=== PATIENT | male | born 1945 | race Caucasian/White ===

== ENCOUNTER 2020-11-29 13:24 | Inpatient (IN) | payer MEDICARE ==
--- NOTE | 2020-11-29 14:12 | ED ---
SOB HPI - General Chief Complaint: Shortness of Breath Stated Complaint: Weakness Time Seen by Provider: 11/29/20 13:36 Source: patient, EMS Mode of arrival: EMS Limitations: physical limitation - History of Present Illness Initial Comments: This is a 75-year-old male with a history of CAD who presents emergency department for 3 weeks worth of exertional dyspnea. The patient states that prior to having exertional dyspnea he states that he was sick and had some upper respiratory symptoms including rhinorrhea and drainage down the back of his throat. He states he thought he had a fever at that time as well. This resolved the next day however the patient states that since that time he's been having exertional dyspnea that gradually worsened. He denies any fevers or chills. No chest pain. No lower [place] swelling that is outside his normal. He states that he has not had any cough. He states that today his dyspnea was worse so he decided come on and don't come emergency department for further evaluation. Denies any other acute complaints. Patient was reportedly hypoxic when EMS arrived in the 80s. This was resolved with a few liters of oxygen. - Related Data Home Medications Medication Instructions Recorded Confirmed Clopidogrel [Plavix] 75 mg PO MOWEFR 11/29/20 11/29/20 Furosemide [Lasix] 20 mg PO DAILY 11/29/20 11/29/20 Isosorbide Mononitrate ER [Imdur] 30 mg PO DAILY 11/29/20 11/29/20 Lisinopril [Zestril] 10 mg PO DAILY 11/29/20 11/29/20 Metoprolol Tartrate 12.5 mg PO DAILY 11/29/20 11/29/20 Simvastatin [Zocor] 20 mg PO HS 11/29/20 11/29/20 Allergies Allergy/AdvReac Type Severity Reaction Status Date / Time No Known Allergies Allergy Verified 11/29/20 14:19 Review of Systems ROS Statement: Those systems with pertinent positive or pertinent negative responses have been documented in the HPI. ROS Other: All systems not noted in ROS Statement are negative. Past Medical History Past Medical History: Coronary Artery Disease (CAD), Hypertension History of Any Multi-Drug Resistant Organisms: None Reported Past Surgical History: Heart Catheterization With Stent Past Psychological History: No Psychological Hx Reported Smoking Status: Former smoker Past Alcohol Use History: None Reported Past Drug Use History: None Reported General Exam - General Exam Comments Initial Comments: Constitutional: Awake alert Appears comfortable Head: Normocephalic atraumatic Eyes: no conjunctival injection No scleral icterus EOMI Neck: No JVD Supple Heart: Regular rate rhythm normal S1-S2 no murmurs Lungs: Clear to auscultation bilaterally No wheezing questionable bibasilar rales Abdomen: Soft nondistended nontender Extremities: Mild pitting edema bilaterally DP pulses intact Radial pulses intact Neuro: A&Ox3 No focal neurologic deficits Psych: Appropriate mood and affect Limitations: physical limitation Course Vital Signs 11/29/20 11/29/20 13:40 14:38 Temperature 98.2 F Pulse Rate 76 84 Respiratory 22 18 Rate Blood Pressure 120/71 100/75 O2 Sat by Pulse 97 94 L Oximetry - Reevaluation(s) Reevaluation #1: EKG showing it or fibrillation with a rate of 87. No abnormal ST 7 changes or T-wave inversions. QTC is 440. Other intervals normal. There is one PVC. 11/29/20 15:34 Medical Decision Making - Medical Decision Making Is a 75-year-old male who presents emergency department for progressively worsening shortness of breath for the last 3 weeks. The patient was hypoxic when EMS arrived. He was stabilized with a couple liters of nasal cannula oxygen. Patient was found to be in new atrophic relation with controlled rate. He started on heparin. Patient was found to be: Positive with bilateral infiltrates. Because the patient was hypoxic he will be admitted to the hospital for monitoring. Will likely require life time" ablation for his A. fib. Dr. Tapia who accepted the admission. - Lab Data Result diagrams: 11/29/20 13:55 11/29/20 13:55 Lab Results 11/29/20 11/29/20 11/29/20 Range/Units 13:55 13:55 13:55 WBC 3.9 (3.8-10.6) k/uL RBC 5.13 (4.30-5.90) m/uL Hgb 15.0 (13.0-17.5) gm/dL Hct 43.0 (39.0-53.0) % MCV 83.8 (80.0-100.0) fL MCH 29.2 (25.0-35.0) pg MCHC 34.9 (31.0-37.0) g/dL RDW 14.0 (11.5-15.5) % Plt Count 220 (150-450) k/uL MPV 7.4 Neutrophils % 71 % Lymphocytes % 17 % Monocytes % 7 % Eosinophils % 0 % Basophils % 1 % Neutrophils # 2.8 (1.3-7.7) k/uL Lymphocytes # 0.7 L (1.0-4.8) k/uL Monocytes # 0.3 (0-1.0) k/uL Eosinophils # 0.0 (0-0.7) k/uL Basophils # 0.0 (0-0.2) k/uL PT 10.9 (9.0-12.0) sec INR 1.0 (<1.2) APTT 21.5 L (22.0-30.0) sec D-Dimer 1.12 H (<0.60) mg/L FEU Sodium 138 (137-145) mmol/L Potassium 4.0 (3.5-5.1) mmol/L Chloride 106 (98-107) mmol/L Carbon Dioxide 26 (22-30) mmol/L Anion Gap 6 mmol/L BUN 22 H (9-20) mg/dL Creatinine 0.95 (0.66-1.25) mg/dL Est GFR (CKD-EPI)AfAm >90 (>60 ml/min/1.73 sqM) Est GFR (CKD-EPI)NonAf 78 (>60 ml/min/1.73 sqM) Glucose 115 H (74-99) mg/dL Calcium 8.0 L (8.4-10.2) mg/dL Magnesium 1.7 (1.6-2.3) mg/dL Total Bilirubin 0.9 (0.2-1.3) mg/dL AST 45 (17-59) U/L ALT 49 (4-49) U/L Alkaline Phosphatase 51 (38-126) U/L Lactate Dehydrogenase (313-618) U/L Troponin I (0.000-0.034) ng/mL C-Reactive Protein (<10.0) mg/L NT-Pro-B Natriuret Pep pg/mL Total Protein 6.1 L (6.3-8.2) g/dL Albumin 3.1 L (3.5-5.0) g/dL Coronavirus (PCR) (Not Detectd) 11/29/20 11/29/20 11/29/20 Range/Units 13:55 13:55 13:55 WBC (3.8-10.6) k/uL RBC (4.30-5.90) m/uL Hgb (13.0-17.5) gm/dL Hct (39.0-53.0) % MCV (80.0-100.0) fL MCH (25.0-35.0) pg MCHC (31.0-37.0) g/dL RDW (11.5-15.5) % Plt Count (150-450) k/uL MPV Neutrophils % % Lymphocytes % % Monocytes % % Eosinophils % % Basophils % % Neutrophils # (1.3-7.7) k/uL Lymphocytes # (1.0-4.8) k/uL Monocytes # (0-1.0) k/uL Eosinophils # (0-0.7) k/uL Basophils # (0-0.2) k/uL PT (9.0-12.0) sec INR (<1.2) APTT (22.0-30.0) sec D-Dimer (<0.60) mg/L FEU Sodium (137-145) mmol/L Potassium (3.5-5.1) mmol/L Chloride (98-107) mmol/L Carbon Dioxide (22-30) mmol/L Anion Gap mmol/L BUN (9-20) mg/dL Creatinine (0.66-1.25) mg/dL Est GFR (CKD-EPI)AfAm (>60 ml/min/1.73 sqM) Est GFR (CKD-EPI)NonAf (>60 ml/min/1.73 sqM) Glucose (74-99) mg/dL Calcium (8.4-10.2) mg/dL Magnesium (1.6-2.3) mg/dL Total Bilirubin (0.2-1.3) mg/dL AST (17-59) U/L ALT (4-49) U/L Alkaline Phosphatase (38-126) U/L Lactate Dehydrogenase (313-618) U/L Troponin I <0.012 (0.000-0.034) ng/mL C-Reactive Protein (<10.0) mg/L NT-Pro-B Natriuret Pep 61 pg/mL Total Protein (6.3-8.2) g/dL Albumin (3.5-5.0) g/dL Coronavirus (PCR) Detected A (Not Detectd) 11/29/20 Range/Units 15:23 WBC (3.8-10.6) k/uL RBC (4.30-5.90) m/uL Hgb (13.0-17.5) gm/dL Hct (39.0-53.0) % MCV (80.0-100.0) fL MCH (25.0-35.0) pg MCHC (31.0-37.0) g/dL RDW (11.5-15.5) % Plt Count (150-450) k/uL MPV Neutrophils % % Lymphocytes % % Monocytes % % Eosinophils % % Basophils % % Neutrophils # (1.3-7.7) k/uL Lymphocytes # (1.0-4.8) k/uL Monocytes # (0-1.0) k/uL Eosinophils # (0-0.7) k/uL Basophils # (0-0.2) k/uL PT (9.0-12.0) sec INR (<1.2) APTT (22.0-30.0) sec D-Dimer (<0.60) mg/L FEU Sodium (137-145) mmol/L Potassium (3.5-5.1) mmol/L Chloride (98-107) mmol/L Carbon Dioxide (22-30) mmol/L Anion Gap mmol/L BUN (9-20) mg/dL Creatinine (0.66-1.25) mg/dL Est GFR (CKD-EPI)AfAm (>60 ml/min/1.73 sqM) Est GFR (CKD-EPI)NonAf (>60 ml/min/1.73 sqM) Glucose (74-99) mg/dL Calcium (8.4-10.2) mg/dL Magnesium 1.8 (1.6-2.3) mg/dL Total Bilirubin (0.2-1.3) mg/dL AST (17-59) U/L ALT (4-49) U/L Alkaline Phosphatase (38-126) U/L Lactate Dehydrogenase 866 H (313-618) U/L Troponin I (0.000-0.034) ng/mL C-Reactive Protein 30.0 H (<10.0) mg/L NT-Pro-B Natriuret Pep pg/mL Total Protein (6.3-8.2) g/dL Albumin (3.5-5.0) g/dL Coronavirus (PCR) (Not Detectd) Disposition Clinical Impression: Pneumonia due to COVID-19 virus Disposition: ADMITTED IP TO THIS HOSP Condition: Stable Referrals: Nonstaff,Physician [Primary Care Provider] - 1-2 days
[2020-11-29 14:14] LABS: Basophils % (A) 1 %; Eosinophils % (A) 0 %; Lymphocytes # (A) 0.7 k/uL (1.0-4.8); Lymphocytes % (A) 17 %; MCH 29.2 pg (25.0-35.0); MCHC 34.9 g/dL (31.0-37.0); MCV 83.8 fL (80.0-100.0); Mean Platelet Volume 7.4; Monocytes # (A) 0.3 k/uL (0-1.0); Monocytes % (A) 7 %; Neutrophils # (A) 2.8 k/uL (1.3-7.7); Neutrophils % (A) 71 %; Platelet Count 220 k/uL (150-450); RBC 5.13 m/uL (4.30-5.90); WBC 3.9 k/uL (3.8-10.6)
--- NOTE | 2020-11-29 14:14 | XR ---
EXAMINATION TYPE: XR chest 1V portable DATE OF EXAM: 11/29/2020 HISTORY: Shortness of breath. COMPARISON: None. TECHNIQUE: Single view of the chest is submitted. FINDINGS: Demonstrated are scattered senescent parenchymal change. Scattered interstitial prominence may reflect interstitial pneumonia. Correlate clinically. The heart is stable. Hilar and mediastinal structures are within normal limits. Degenerative changes are seen of the dorsal spine. IMPRESSION: 1. Scattered interstitial prominence may reflect interstitial pneumonia. Correlate clinically.
[2020-11-29 14:36] LABS: Prothrombin Time 10.9 sec (9.0-12.0)
[2020-11-29 14:53] LABS: D-Dimer 1.12 mg/L FEU (<0.60); Partial Thromboplastin Time 21.5 sec (22.0-30.0)
[2020-11-29 14:54] LABS: ALT 49 U/L (4-49); AST 45 U/L (17-59); African American GFR (CKD) >90 (>60 ml/min/1.73 sqM); Albumin 3.1 g/dL (3.5-5.0); Alkaline Phosphatase 51 U/L (38-126); Anion Gap 6 mmol/L; Blood Urea Nitrogen 22 mg/dL (9-20); Carbon Dioxide 26 mmol/L (22-30); Chloride 106 mmol/L (98-107); Glucose 115 mg/dL (74-99); Magnesium 1.7 mg/dL (1.6-2.3); Non-African American GFR(CKD) 78 (>60 ml/min/1.73 sqM); Sodium 138 mmol/L (137-145); Total Bilirubin 0.9 mg/dL (0.2-1.3); Total Protein 6.1 g/dL (6.3-8.2)
[2020-11-29] MEDS ORDERED: HEPARIN SODIUM 1,000 UN/ML (10ML VL) IV ONE (15:32)
[2020-11-29] MEDS ORDERED: HEPARIN SODIUM 1,000 UN/ML (10ML VL) IV PRN (15:32)
[2020-11-29 15:36] LABS: Magnesium 1.8 mg/dL (1.6-2.3)
[2020-11-29] MEDS ORDERED: HEPARIN SOD,PORK IN 0.45% NACL 25,000 UNIT in 0.45% NACL 1 250ML.BAG IV SCH (15:45)
[2020-11-29] MEDS: DEXAMETHASONE SOD PHOSPHATE 10 MG/ML 1 ML VIAL IV SCH (15:48)
--- NOTE | 2020-11-29 15:54 | CT ---
EXAMINATION TYPE: CT angio chest DATE OF EXAM: 11/29/2020 COMPARISON: None HISTORY: SOB, elevated d-dimer CT DLP: 926.5 mGycm CONTRAST: CT chest with contrast and 3D reconstruction with MIP imaging is performed with IV Contrast, patient injected with 100 mL of Isovue 370. Contrast-enhanced CT of the chest was performed through the course of the pulmonary arteries with dominki g and mediastinal window settings submitted. 3D reconstruction with MIP imaging was also performed. PULMONARY ARTERIES: The pulmonary arteries and their major tributaries are patent. I do not see bebo dence for sizable filling defect to suggest pulmonary embolic process. LUNGS: Infiltrates throughout both lung singh compatible with the provided history of Covid 19 pneum onia. No evidence for atelectasis. No pulmonary nodule or mass is detected. No pleural effusion. MEDIASTINUM: Thoracic aorta is of normal caliber,however, evaluation is limited given timing of the contrast bolus. If there is concern for thoracic aortic pathology consider JOHN. Correlate clinicall y . The heart is not enlarged. No evidence for mediastinal mass. No mediastinal lymph nodes greater than 1cm. HILAR STRUCTURES: No evidence for mass. No hilar lymph nodes greater than 1 cm. UPPER ABDOMEN: No significant abnormality is seen. IMPRESSION: 1. No evidence for Pulmonary embolism at this time. 2.Infiltrates throughout both lung singh compatible with the provided history of Covid 19 pneumonia.
[2020-11-29] MEDS ORDERED: NALOXONE 0.4 MG/ML 1 ML VIAL IV PRN (15:59)
[2020-11-29] MEDS ORDERED: MELATONIN 3 MG TABLET PO PRN (18:00)
[2020-11-29] MEDS ORDERED: ALBUTEROL HFA INHALER INHALATION PRN (18:00)
[2020-11-29] MEDS ORDERED: ACETAMINOPHEN TAB 325 MG TAB PO PRN (18:00)
[2020-11-29] MEDS ORDERED: ONDANSETRON 4 MG/2 ML VIAL IVP PRN (18:00)
--- NOTE | 2020-11-29 18:05 | P.HPIM ---
History of Present Illness H&P Date: 11/29/20 Chief Complaint: shortness of breath Patient is a 75 yo CM with a hx of CAD s/p PCI X 2, HTN, HLD, and obeisty who presented with 2 weeks of worsening exertional dyspnea. In the ER EKG showed newly discovered A. fib without rapid ventricular response. He has had to be coping positive. CRP 30, LDH 866, d-dimer 1.12. He underwent a CT of the chest which showed no evidence of pulmonary embolism but did show infiltrates throughout both lung singh compatible with history of COVID 19 pneumonia. He was given a dose of Decadron and started on a heparin drip. Arrangements were made for admission. Patient seen and examined at bedside with family present. He reports that approximately 3 weeks ago (family members state 2 weeks ago) he started having exertional dyspnea. He states he can breathe normally at rest but the minute he tries to walk or do something his significantly shortness breath and is unable to walk greater than the length of one room. He has been having some cough and postnasal drip. He states that he has had an odd taste but denies loss of taste or smell. He denies any chest pain. He has had one day of subjective fevers and one day of diarrhea but those have resolved. He denies any headaches. He denies any chest pain. He was typically following with Dr. Butcher out of [facility] for his cardiology. He denies a history of atrial fibrillation. He has been taking his medications. He denies any known Covid exposures. He denies any overt fatigue. He has chronic lower extremity edema which was unchanged. Review of Systems Pertinent positives and negatives as discussed in HPI, a complete review of systems was performed and all other systems are negative. Past Medical History Past Medical History: Coronary Artery Disease (CAD), Hyperlipidemia, Hypertension History of Any Multi-Drug Resistant Organisms: None Reported Past Surgical History: Heart Catheterization With Stent Past Psychological History: No Psychological Hx Reported Smoking Status: Former smoker Past Alcohol Use History: Rare Past Drug Use History: None Reported Additional History: No assistive devices - Past Family History Father Additional Family Medical History / Comment(s): from cancer-patient believes it was colon cancer. Mother Additional Family Medical History / Comment(s): from old age Medications and Allergies Home Medications Medication Instructions Recorded Confirmed Type Clopidogrel [Plavix] 75 mg PO MOWEFR 11/29/20 11/29/20 History Furosemide [Lasix] 20 mg PO DAILY 11/29/20 11/29/20 History Isosorbide Mononitrate ER [Imdur] 30 mg PO DAILY 11/29/20 11/29/20 History Lisinopril [Zestril] 10 mg PO DAILY 11/29/20 11/29/20 History Metoprolol Tartrate 12.5 mg PO DAILY 11/29/20 11/29/20 History Simvastatin [Zocor] 20 mg PO HS 11/29/20 11/29/20 History Allergies Allergy/AdvReac Type Severity Reaction Status Date / Time No Known Allergies Allergy Verified 11/29/20 14:19 Physical Exam Osteopathic Statement: *. No significant issues noted on an osteopathic structural exam other than those noted in the History and Physical/Consult. Vitals: Vital Signs Temp Pulse Resp BP Pulse Ox 11/29/20 17:29 83 18 109/78 96 11/29/20 14:38 84 18 100/75 94 L 11/29/20 13:40 98.2 F 76 22 120/71 97 Intake and Output 11/29/20 11/29/20 11/29/20 06:59 14:59 22:59 Other: Weight 152.861 kg General: Ill appearing, mild distress, obese, appears at stated age Derm: warm, dry Head: atraumatic, normocephalic, symmetric Eyes: EOMI, no lid lag, anicteric sclera, pupils equal round reactive to light ENT: Nose and ears atraumatic, no thrush, + pharyngeal erythema, + PND Neck: No thyromegaly, no cervical lymphadenopathy, trachea midline, supple Mouth: no lip lesion, mucus membranes moist Cardiovascular: S1S2 irreg, no murmur, positive posterior tibial pulse bilateral, 2+ edema, capillary refill less than 2 seconds Lungs: clear to ascultation bilateral, no ronchi, no rales, no wheeze, no accessory muscle use Abdominal: soft, nontender to palpation, no guarding, no appreciable organomegaly, normal bowel sounds Ext: no gross muscle atrophy, muscle strength muscle strength 5 out of 5 in all 4 extremities, no contractures Neuro: CN II-XI grossly intact, light touch intact all 4 extremities Psych: Alert, oriented, appropriate affect Results CBC & Chem 7: 11/29/20 13:55 11/29/20 13:55 Labs: Abnormal Lab Results - Last 24 Hours (Table) 11/29/20 11/29/20 11/29/20 Range/Units 13:55 13:55 13:55 Lymphocytes # 0.7 L (1.0-4.8) k/uL APTT 21.5 L (22.0-30.0) sec D-Dimer 1.12 H (<0.60) mg/L FEU BUN 22 H (9-20) mg/dL Glucose 115 H (74-99) mg/dL Calcium 8.0 L (8.4-10.2) mg/dL Lactate Dehydrogenase (313-618) U/L C-Reactive Protein (<10.0) mg/L Total Protein 6.1 L (6.3-8.2) g/dL Albumin 3.1 L (3.5-5.0) g/dL Coronavirus (PCR) (Not Detectd) 11/29/20 11/29/20 Range/Units 13:55 15:23 Lymphocytes # (1.0-4.8) k/uL APTT (22.0-30.0) sec D-Dimer (<0.60) mg/L FEU BUN (9-20) mg/dL Glucose (74-99) mg/dL Calcium (8.4-10.2) mg/dL Lactate Dehydrogenase 866 H (313-618) U/L C-Reactive Protein 30.0 H (<10.0) mg/L Total Protein (6.3-8.2) g/dL Albumin (3.5-5.0) g/dL Coronavirus (PCR) Detected A (Not Detectd) Chest x-ray: report reviewed Abdominal x-ray: report reviewed CT scan - chest: report reviewed Thrombosis Risk Factor Assmnt - DVT/VTE Prophylaxis DVT/VTE Prophylaxis: Pharmacologic Prophylaxis ordered Assessment and Plan Assessment: COVID 19 pneumonitis with acute hypoxic respiratory failure -Patient is out of the window for REM -Decadron - albuterol -Vanco, vitamin C, vitamin D -Patient is on heparin drip -If worsening hypoxemia in a.m. Will consult pulmonary - trend inflammatory labs Newly discovered atrial fibrillation -Suspect long-standing as it is currently rate controlled, though this may be secondary to his metoprolol -Continue with heparin drip, oral metoprolol -Echo in a.m. -Cardiology consultation - TSH - Tele [facility] - Plavix, lipitor, metoprolol Morbid obesity with BMI 51.2 -Structured outpatient weight loss Dyslipidemia -Plavix Patient denies CHF but likely considering meds and chronic edema - await echo The patient is admitted with an anticipated greater than 2 midnight stay for evaluation of Covid and A. fib Surrogate decision-maker: DVT prophylaxis: Heparin gtt Discussed with: Patient, nursing, family, ED physician Anticipated discharge date: 2-[address]: A total of 65 minutes was spent on the care of this complex patient more than 50% of the time was spent in counseling and care coordination.
[2020-11-29] MEDS: ATORVASTATIN 10 MG TAB PO SCH (20:14)
[2020-11-29] MEDS: CHOLECALCIFEROL 25 MCG (1000 IU) TABLET PO SCH (20:14)
[2020-11-29] MEDS: ALBUTEROL HFA INHALER INHALATION SCH (20:25)
[2020-11-30] MEDS: ALBUTEROL HFA INHALER INHALATION SCH ×4 (01:34→19:33)
[2020-11-30 08:15] LABS: D-Dimer 0.6 mg/L FEU (<0.60); Partial Thromboplastin Time 35.8 sec (22.0-30.0)
[2020-11-30] MEDS ORDERED: CLOPIDOGREL 75 MG TAB PO SCH (09:00)
[2020-11-30] MEDS: FAMOTIDINE 20 MG TAB PO SCH (09:16)
[2020-11-30] MEDS: FUROSEMIDE 20 MG TAB PO SCH (09:16)
[2020-11-30] MEDS: lisinopriL 10 MG TAB PO SCH (09:16)
[2020-11-30] MEDS: ZINC SULFATE 220 MG CAP PO SCH (09:16)
[2020-11-30] MEDS: CHOLECALCIFEROL 25 MCG (1000 IU) TABLET PO SCH (09:16)
[2020-11-30] MEDS: ISOSORBIDE MONONITRATE ER 30 MG TAB.ER.24H PO SCH (09:16)
[2020-11-30] MEDS: ASCORBIC ACID 500 MG TAB PO SCH (09:16)
[2020-11-30] MEDS: DEXAMETHASONE SOD PHOSPHATE 10 MG/ML 1 ML VIAL IV SCH (09:16)
[2020-11-30] MEDS: METOPROLOL TARTRATE 12.5 MG TAB PO SCH (09:16)
[2020-11-30 10:34] LABS: HGB 13.9 g/dL (13.0-17.0); MCH 27.8 pg (27.0-32.0); MCHC 32.3 g/dL (32.0-37.0); Mean Platelet Volume 10.2 fL (9.5-12.2); Platelet Count 263 X 10*3/uL (140-440); RDW 13.9 % (11.5-14.5); WBC 2.69 X 10*3/uL (4.50-10.00)
[2020-11-30 11:05] LABS: African American GFR (CKD) 101.3 (60.0-200.0); Albumin 3.9 g/dL (3.80-4.90); Albumin/Globulin Ratio 1.63 (1.60-3.17); Anion Gap 8.2 mmol/L (4.00-12.00); BUN/Creat Ratio 23.75 Ratio (12.00-20.00); C Reactive Protein 3.1 mg/dL (0.0-0.8); Calcium 8.6 mg/dL (8.7-10.3); Carbon Dioxide 25.8 mmol/L (21.6-31.8); Globulin 2.4 g/dL (1.6-3.3); Non-African American GFR(CKD) 87.4 (60.0-200.0); Potassium 4.3 mmol/L (3.5-5.5); Total Bilirubin 0.7 mg/dL (0.3-1.2); Total Protein 6.3 g/dL (6.2-8.2)
--- NOTE | 2020-11-30 11:21 | P.CRDCN ---
History of Present Illness Consult date: 11/30/20 History of present illness: CHIEF COMPLAINT: A. fib HISTORY OF PRESENT ILLNESS: This is a 75-year-old male with a past medical history significant for coronary artery disease with previous stent placement, hypertension, and hyperlipidemia. Patient follows with a canine deputy out of [place], Dr. Butcher. We have been asked to see the patient in consultation for atrial fibrillation. Patient presented to the hospital secondary to shortness of breath. She was found to be positive for Covid. An EKG was obtained which was interpreted as atrial fibrillation and cardiac was consulted for further evaluation. The patient was started on a heparin drip. Dr. Espinoza reviewed the EKGs and telemetry and ruled out atrial fibrillation. DIAGNOSTICS: EKG reveals sinus mechanism with PACs, possible wandering pacemaker Chest xray scattered interstitial prominence may reflect interstitial pneumonia Laboratory data: WBC 2.69. Hemoglobin 13.9. Platelet count 263. Sodium 139. Potassium 4.3. BUN 19. Creatinine 0.8. Troponin negative 3. TSH 1.200. Current home cardiac medications include Zocor 20 mrem daily, metoprolol tartrate 12.5 mg daily, lisinopril 10 mg daily, Imdur 30 mg daily, Lasix 20 mg daily, and Plavix 75 mg Saturday REVIEW OF SYSTEMS: Thorough review of systems not completed secondary to limited evaluation/examination and due to Covid19 PHYSICAL EXAM: Thorough physical exam not completed secondary to limited evaluation/examination and due to Covid19 ASSESSMENT: Covid 19 Acute hypoxic respiratory failure Atrial fibrillation ruled out, EKG reveals sinus mechanism with PACs, possible wandering pacemaker Coronary artery disease with previous stent placement, exact details unknown Hypertension Hyperlipidemia PLAN: May discontinue heparin from a cardiac standpoint. Will defer to medicine Continue additional cardiac medications No further recommendations from a cardiac standpoint at this time Patient may follow up with his primary canine deputy post discharge. We will sign off. Please reconsult if needed. Nurse practitioner note has been reviewed by physician. Signing provider agrees with the documented findings, assessment, and plan of care. Past Medical History Past Medical History: Coronary Artery Disease (CAD), Hyperlipidemia, Hypertension History of Any Multi-Drug Resistant Organisms: None Reported Past Surgical History: Heart Catheterization With Stent Past Anesthesia/Blood Transfusion Reactions: No Reported Reaction Date of Last Stent Placement:: 2010 Past Psychological History: No Psychological Hx Reported Smoking Status: Former smoker Past Alcohol Use History: Rare Past Drug Use History: None Reported - Past Family History Father Additional Family Medical History / Comment(s): from cancer-patient believes it was colon cancer. Mother Additional Family Medical History / Comment(s): from old age Medications and Allergies Home Medications Medication Instructions Recorded Confirmed Type Clopidogrel [Plavix] 75 mg PO MOWEFR 11/29/20 11/29/20 History Furosemide [Lasix] 20 mg PO DAILY 11/29/20 11/29/20 History Isosorbide Mononitrate ER [Imdur] 30 mg PO DAILY 11/29/20 11/29/20 History Lisinopril [Zestril] 10 mg PO DAILY 11/29/20 11/29/20 History Metoprolol Tartrate 12.5 mg PO DAILY 11/29/20 11/29/20 History Simvastatin [Zocor] 20 mg PO HS 11/29/20 11/29/20 History Allergies Allergy/AdvReac Type Severity Reaction Status Date / Time No Known Allergies Allergy Verified 11/29/20 14:19 Physical Exam Vitals: Vital Signs Temp Pulse Pulse Resp BP BP BP 11/30/20 07:06 97.6 F 55 L 22 138/89 11/30/20 04:12 97.9 F 67 18 130/75 11/30/20 02:00 74 20 11/29/20 23:11 97.4 F L 74 20 157/74 11/29/20 17:29 83 18 109/78 11/29/20 14:38 84 18 100/75 11/29/20 13:40 98.2 F 76 22 120/71 Pulse Ox 11/30/20 07:06 93 L 11/30/20 04:12 91 L 11/30/20 02:00 11/29/20 23:11 92 L 11/29/20 17:29 96 11/29/20 14:38 94 L 11/29/20 13:40 97 Intake and Output 11/29/20 11/30/20 11/30/20 22:59 06:59 14:59 Intake Total 78.729 Balance 78.729 Intake: Intake, IV Titration 78.729 Amount Heparin Sod,Pork in 0.45% 78.729 NaCl 25,000 unit In 0.45 % NaCl 1 250ml.bag @ 6. 5418 UNITS/KG/HR 10 mls/ hr IV .Q24H [facility] Rx#: [id number] Other: Voiding Method Toilet # Voids 1 Weight 152.861 kg Results 11/30/20 06:45 11/30/20 06:45 Cardiac Enzymes 11/29/20 11/29/20 11/29/20 Range/Units 13:55 13:55 15:23 AST 45 (17-59) U/L Lactate Dehydrogenase 866 H (313-618) U/L Troponin I <0.012 (0.000-0.034) ng/mL 11/29/20 11/29/20 11/30/20 Range/Units 18:45 21:47 06:45 AST 34 (17-59) U/L Lactate Dehydrogenase 305 H (313-618) U/L Troponin I <0.012 <0.012 (0.000-0.034) ng/mL Coagulation 11/29/20 11/29/20 11/30/20 Range/Units 13:55 21:47 06:45 PT 10.9 (9.0-12.0) sec APTT 21.5 L 24.3 35.8 H (22.0-30.0) sec CBC 11/29/20 11/30/20 Range/Units 13:55 06:45 WBC 3.9 2.69 L (3.8-10.6) k/uL RBC 5.13 5.00 (4.30-5.90) m/uL Hgb 15.0 13.9 (13.0-17.5) gm/dL Hct 43.0 43.0 (39.0-53.0) % Plt Count 220 263 (150-450) k/uL Comprehensive Metabolic Panel 11/29/20 11/30/20 Range/Units 13:55 06:45 Sodium 138 139 (137-145) mmol/L Potassium 4.0 4.3 (3.5-5.1) mmol/L Chloride 106 105 (98-107) mmol/L Carbon Dioxide 26 25.8 (22-30) mmol/L BUN 22 H 19.0 (9-20) mg/dL Creatinine 0.95 0.8 (0.66-1.25) mg/dL Glucose 115 H 152 H (74-99) mg/dL Calcium 8.0 L 8.6 L (8.4-10.2) mg/dL AST 45 34 (17-59) U/L ALT 49 50 H (4-49) U/L Alkaline Phosphatase 51 48 (38-126) U/L Total Protein 6.1 L 6.3 (6.3-8.2) g/dL Albumin 3.1 L 3.90 (3.5-5.0) g/dL Current Medications Generic Name Dose Route Start Last Admin Trade Name Freq PRN Reason Stop Dose Admin Acetaminophen 650 mg 11/29/20 18:00 Acetaminophen Tab 325 Mg Tab PO Q6HR PRN Mild Pain or Fever > 100.5 Albuterol Sulfate 2 puff 11/29/20 18:00 Albuterol Hfa Inhaler INHALATION RT-Q6H PRN Shortness Of Breath Or Wheezing Albuterol Sulfate 2 puff 11/30/20 08:00 11/30/20 07:33 Albuterol Hfa Inhaler INHALATION 2 puff RT-TID KARAN Administration Ascorbic Acid 1,000 mg 11/30/20 09:00 11/30/20 09:16 Ascorbic Acid 500 Mg Tab PO 1,000 mg DAILY KARAN Administration Atorvastatin Calcium 10 mg 11/29/20 21:00 11/29/20 20:14 Atorvastatin 10 Mg Tab PO 10 mg HS KARAN Administration Cholecalciferol 100 mcg 11/29/20 19:30 11/30/20 09:16 Cholecalciferol 25 Mcg (1000 Iu) Tablet PO 100 mcg DAILY KARAN Administration Clopidogrel Bisulfate 75 mg 11/30/20 09:00 11/30/20 09:16 Clopidogrel 75 Mg Tab PO 75 mg MOWEFR KARAN Administration Dexamethasone Sodium Phosphate 6 mg 11/29/20 15:30 11/30/20 09:16 Dexamethasone Sod Phosphate 10 Mg/Ml 1 Ml Vial IV 6 mg DAILY KARAN Administration Famotidine 40 mg 11/30/20 09:00 11/30/20 09:16 Famotidine 20 Mg Tab PO 40 mg DAILY KARAN Administration Furosemide 20 mg 11/30/20 09:00 11/30/20 09:16 Furosemide 20 Mg Tab PO 20 mg DAILY KARAN Administration Isosorbide Mononitrate 30 mg 11/30/20 09:00 11/30/20 09:16 Isosorbide Mononitrate Er 30 Mg Tab.Er.24h PO 30 mg DAILY KARAN Administration Lisinopril 10 mg 11/30/20 09:00 11/30/20 09:16 Lisinopril 10 Mg Tab PO 10 mg DAILY KARAN Administration Melatonin 3 mg 11/29/20 18:00 Melatonin 3 Mg Tablet PO HS PRN Insomnia Metoprolol Tartrate 12.5 mg 11/30/20 09:00 11/30/20 09:16 Metoprolol Tartrate 12.5 Mg Tab PO 12.5 mg DAILY KARAN Administration Naloxone HCl 0.2 mg 11/29/20 15:59 Naloxone 0.4 Mg/Ml 1 Ml Vial IV Q2M PRN Opioid Reversal Ondansetron HCl 4 mg 11/29/20 18:00 Ondansetron 4 Mg/2 Ml Vial IVP Q8HR PRN Nausea And Vomiting Zinc Sulfate 220 mg 11/30/20 09:00 11/30/20 09:16 Zinc Sulfate 220 Mg Cap PO 220 mg DAILY KARAN Administration Intake and Output 11/29/20 11/30/20 11/30/20 22:59 06:59 14:59 Intake Total 78.729 Balance 78.729 Intake: Intake, IV Titration 78.729 Amount Heparin Sod,Pork in 0.45% 78.729 NaCl 25,000 unit In 0.45 % NaCl 1 250ml.bag @ 6. 5418 UNITS/KG/HR 10 mls/ hr IV .Q24H [facility] Rx#: [id number] Other: Voiding Method Toilet # Voids 1 Weight 152.861 kg 11/30/20 06:45 11/30/20 06:45
--- NOTE | 2020-11-30 11:33 | ECHOF ---
Referral Reason:a fib MEASUREMENTS -------- HEIGHT: 172.7 cm WEIGHT: 152.9 kg BP: 130/75 IVSd: 1.3 cm (0.6 - 1.1) LVIDd: 4.1 cm (3.9 - 5.3) LVPWd: 1.3 cm (0.6 - 1.1) IVSs: 1.5 cm LVIDs: 2.4 cm LVPWs: 1.4 cm LAESV Index (A-L): 32.23 ml/m MV E Vick: 0.98 m/s MV DecT: 274 ms MV A Vick: 0.61 m/s MV E/A Ratio: 1.60 FINDINGS -------- Sinus rhythm. This was a technically difficult study with suboptimal views. The left ventricular size is normal. There is mild concentric left ventricular hypertrophy. Overa ll left ventricular systolic function is normal with, an EF between 55 - 60 %. The RV was not well visualized. LA is midly dilated 29-33ml/m2. The right atrial size is normal. 5.0mg of Lumason was utilized for enhancement of images Interatrial and interventricular septum intact. The aortic valve was not well visualized. There is no evidence of aortic regurgitation. There is no evidence of aortic stenosis. The mitral valve was not well visualized. Mild mitral regurgitation is present. The tricuspid valve was not well visualized. Unable to estimate RVSP due to inadequate TR jet spect ral doppler profile. The pulmonic valve was not well visualized. IVC Not well visulized. There is no pericardial effusion. CONCLUSIONS -------- 1. The left ventricular size is normal. 2. There is mild concentric left ventricular hypertrophy. 3. Overall left ventricular systolic function is normal with, an EF between 55 - 60 %. 4. LA is midly dilated 29-33ml/m2. 5. Mild mitral regurgitation is present. CHEMICAL TEST ENGINEER: Luna Sorenson RDCS
[2020-11-30 13:28] LABS: Ferritin 450.9 ng/mL (22.0-322.0)
[2020-11-30] MEDS: ATORVASTATIN 10 MG TAB PO SCH (20:11)
--- NOTE | 2020-11-30 21:36 | P.PN ---
Subjective Progress Note Date: 11/30/20 (torri panchal seen at 0930) Principal diagnosis: shortness of breath Patient is a 75 yo CM with a hx of CAD s/p PCI X 2, HTN, HLD, and obeisty who presented with 2 weeks of worsening exertional dyspnea. In the ER EKG showed newly discovered A. fib without rapid ventricular response. He has had to be coping positive. CRP 30, LDH 866, d-dimer 1.12. He underwent a CT of the chest which showed no evidence of pulmonary embolism but did show infiltrates throughout both lung singh compatible with history of COVID 19 pneumonia. He was given a dose of Decadron and started on a heparin drip. Arrangements were made for admission. He was seen by cardio and determined to not have A fib but frequent PACs and possible wandering atrial pacemaker. Echo with EF 55-60% Patient seen and examined at bedside. Feeling much better today, breathing much improved, weakness is improved, no chest pain, no nausea or vomiting. General: non toxic, no distress, appears at stated age Derm: warm, dry Head: atraumatic, normocephalic, symmetric Eyes: EOMI, no lid lag, anicteric sclera Mouth: no lip lesion, mucus membranes moist Cardiovascular: S1S2 reg, no murmur, positive posterior tibial pulse bilateral, Lungs: COurse bs bilateral, no rhonchi, no rales , no accessory muscle use Abdominal: soft, nontender to palpation, no guarding, no appreciable organomegaly Ext: no gross muscle atrophy, 1+ edema, no contractures Neuro: CN II-XI grossly intact, no focal neuro deficits Psych: Alert, oriented, appropriate affect COVID 19 pneumonitis with acute hypoxic respiratory failure -Patient is out of the window for REM -Decadron -Albuterol -Zinc, vitamin C, vitamin D -Lovenox - trend inflammatory labs Sinus rhythm with PAC and possible wandering atrial pacemaker. atrial fibrillation ruled out - echo normal -Suspect long-standing as it is currently rate controlled, though this may be secondary to his metoprolol -Cardiologyrecs appreicated and they have signed off - TSH noraml - Tele [facility] - Plavix, lipitor, metoprolol Morbid obesity with BMI 51.2 -Structured outpatient weight loss Dyslipidemia -Statin Nursing preformed home O2 evaluation, no need for home O2 Likely home in AM DVT prophylaxis: lovenox Objective - Vital Signs Vital signs: Vital Signs Temp 97.4 F L 11/30/20 19:45 Pulse 53 L 11/30/20 20:00 Resp 20 11/30/20 20:00 BP 129/87 11/30/20 19:45 Pulse Ox 95 11/30/20 19:45 Intake & Output 11/30/20 11/30/20 12/01/20 06:59 18:59 06:59 Intake Total 78.729 840 Balance 78.729 840 Weight 152.861 kg Intake: Intake, IV Titration 78.729 Amount Heparin Sod,Pork in 0.45% 78.729 NaCl 25,000 unit In 0.45 % NaCl 1 250ml.bag @ 6. 5418 UNITS/KG/HR 10 mls/ hr IV .[facility]H [facility] Rx#: [id number] Oral 840 Other: Voiding Method Toilet Toilet # Voids 1 1 1 - Labs CBC & Chem 7: 11/30/20 06:45 11/30/20 06:45 Labs: Abnormal Lab Results - Last 24 Hours (Table) 11/29/20 11/30/20 11/30/20 Range/Units 15:23 06:45 06:45 WBC 2.69 L (4.50-10.00) X 10*3/uL APTT 35.8 H (22.0-30.0) sec D-Dimer 0.60 H (<0.60) mg/L FEU BUN/Creatinine Ratio (12.00-20.00) Ratio Glucose (70-110) mg/dL Calcium (8.7-10.3) mg/dL Ferritin 450.9 H (22.0-322.0) ng/mL ALT (10-49) U/L Lactate Dehydrogenase (120-246) U/L C-Reactive Protein (0.0-0.8) mg/dL 11/30/20 Range/Units 06:45 WBC (4.50-10.00) X 10*3/uL APTT (22.0-30.0) sec D-Dimer (<0.60) mg/L FEU BUN/Creatinine Ratio 23.75 H (12.00-20.00) Ratio Glucose 152 H (70-110) mg/dL Calcium 8.6 L (8.7-10.3) mg/dL Ferritin (22.0-322.0) ng/mL ALT 50 H (10-49) U/L Lactate Dehydrogenase 305 H (120-246) U/L C-Reactive Protein 3.1 H (0.0-0.8) mg/dL Microbiology - Last 24 Hours (Table) 11/29/20 15:30 Blood Culture - Preliminary Blood No Growth after 24 hours 11/29/20 15:45 Blood Culture - Preliminary Blood No Growth after 24 hours
[2020-12-01] MEDS: ALBUTEROL HFA INHALER INHALATION SCH (08:29)
[2020-12-01] MEDS: ASCORBIC ACID 500 MG TAB PO SCH (08:51)
[2020-12-01] MEDS: CHOLECALCIFEROL 25 MCG (1000 IU) TABLET PO SCH (08:51)
[2020-12-01] MEDS: ISOSORBIDE MONONITRATE ER 30 MG TAB.ER.24H PO SCH (08:51)
[2020-12-01] MEDS: FAMOTIDINE 20 MG TAB PO SCH (08:52)
[2020-12-01] MEDS: FUROSEMIDE 20 MG TAB PO SCH (08:52)
[2020-12-01] MEDS: ZINC SULFATE 220 MG CAP PO SCH (08:52)
[2020-12-01] MEDS: lisinopriL 10 MG TAB PO SCH (08:52)
[2020-12-01] MEDS: METOPROLOL TARTRATE 12.5 MG TAB PO SCH (08:53)
[2020-12-01] MEDS ORDERED: ENOXAPARIN 40 MG/0.4 ML SYRINGE SQ SCH (09:00)
--- NOTE | 2020-12-01 09:01 | P.DS ---
Providers Date of admission: 11/29/20 16:00 Expected date of discharge: 12/01/20 Attending physician: Edilma Zaragoza DO Primary care physician: Physician Nonstaff Hospital Course: This is a 75-year-old male with past medical history noted below who presented to the emergency room with worsening shortness of breath. Patient was evaluated in the ER and placed on observation for further management of his medical problems noted below. 1. COVID-19 pneumonia, started on Decadron. He will finish 10 days course. Continue vitamin C, vitamin D, zinc, and melatonin. CT angiogram of the chest in the ER showed no evidence of PE. 2. Transient hypoxic respiratory failure that resolved. Patient O2 sats remained greater than 90% on room air throughout hospital stay. 3. Premature atrial contractions, noted on 12-lead EKG. Seen and evaluated by cardiology. A. fib ruled out. Thyroid function tests within acceptable range. 4. Chronic medical problems: Coronary artery disease with prior stent placement, hypertension, hyperlipidemia, obesity. Patient will be discharged home in a stable condition. He will follow-up with his PCP and radial drill operator for plastic as directed. Patient Condition at Discharge: Stable Plan - Discharge Summary Discharge Rx Participant: No New Discharge Prescriptions: New Zinc Sulfate [Orazinc] 220 mg PO DAILY #30 cap Albuterol Inhaler [Ventolin Hfa Inhaler] 2 puff INHALATION RT-Q6H PRN #1 inhaler PRN Reason: Shortness Of Breath Or Wheezing Cholecalciferol [Vitamin D3 (25 Mcg = 1000 Iu)] 50 mcg PO DAILY #30 tablet Dexamethasone [Decadron] 6 mg PO DAILY #7 tablet Melatonin 3 mg PO HS PRN #30 tablet PRN Reason: Insomnia Ascorbic Acid [Vitamin C] 1,000 mg PO DAILY #30 tab Continue Metoprolol Tartrate 12.5 mg PO DAILY Lisinopril [Zestril] 10 mg PO DAILY Isosorbide Mononitrate ER [Imdur] 30 mg PO DAILY Furosemide [Lasix] 20 mg PO DAILY Clopidogrel [Plavix] 75 mg PO MOWEFR Simvastatin [Zocor] 20 mg PO HS Discharge Medication List Clopidogrel [Plavix] 75 mg PO MOWEFR 11/29/20 [History] Furosemide [Lasix] 20 mg PO DAILY 11/29/20 [History] Isosorbide Mononitrate ER [Imdur] 30 mg PO DAILY 11/29/20 [History] Lisinopril [Zestril] 10 mg PO DAILY 11/29/20 [History] Metoprolol Tartrate 12.5 mg PO DAILY 11/29/20 [History] Simvastatin [Zocor] 20 mg PO HS 11/29/20 [History] Albuterol Inhaler [Ventolin Hfa Inhaler] 2 puff INHALATION RT-Q6H PRN #1 inhaler 12/01/20 [Rx] Ascorbic Acid [Vitamin C] 1,000 mg PO DAILY #30 tab 12/01/20 [Rx] Cholecalciferol [Vitamin D3 (25 Mcg = 1000 Iu)] 50 mcg PO DAILY #30 tablet 12/01/20 [Rx] Dexamethasone [Decadron] 6 mg PO DAILY #7 tablet 12/01/20 [Rx] Melatonin 3 mg PO HS PRN #30 tablet 12/01/20 [Rx] Zinc Sulfate [Orazinc] 220 mg PO DAILY #30 cap 12/01/20 [Rx] Follow up Appointment(s)/Referral(s): Nonstaff,Physician [Primary Care Provider] - 1-2 days Discharge Disposition: HOME SELF-CARE
--- NOTE | 2020-12-01 09:22 | XR ---
EXAMINATION TYPE: XR chest 1V portable DATE OF EXAM: 12/01/2020 Comparison: 11/29/2020 Clinical History: 75-year-old male all pneumonia Findings: Heart mildly enlarged. Patchy opacity in the periphery of the mid and lower lungs similar to slightly improved from prior. No sizable effusion. Impression: Persistent but improving patchy peripheral mid and lower lung infiltrates.
[2020-12-01 10:00] VITALS: BP 146/83; PULSE 69; RESP 18; TEMP 97.8
== END 2020-12-01 10:12 | disposition home or self-care (01) | DRG 177 ==
LOC: EC 13:24 → 6NMEDSUR 16:00
PROVIDERS: ADMIT Internal Medicine; ATTEND Internal Medicine
DX: U07.1 COVID-19 (principal); J12.82 Pneumonia due to coronavirus disease 2019; J96.01 Acute respiratory failure with hypoxia; Z68.43 Body mass index [BMI] 50.0-59.9, adult; E66.01 Morbid (severe) obesity due to excess calories; I11.9 Hypertensive heart disease without heart failure; I49.1 Atrial premature depolarization; I25.10 Atherosclerotic heart disease of native coronary artery without angina pectoris; E78.5 Hyperlipidemia, unspecified; R26.2 Difficulty in walking, not elsewhere classified; Z79.02 Long term (current) use of antithrombotics/antiplatelets; Z79.899 Other long term (current) drug therapy; Z95.5 Presence of coronary angioplasty implant and graft; Z87.891 Personal history of nicotine dependence
CPT/HCPCS: 36415; 71045; 71275; 80053; 82728; 83605; 83615; 83735; 83880; 84145; 84443; 84484; 85025; 85027; 85379; 85610; 85730; 86140; 87040; 87635; 93005; 93306; 94640; 94760; 96374; 96375; 99285